=== PATIENT | male | born 1950 | race Caucasian/White ===

== ENCOUNTER 2017-12-31 12:24 | Inpatient (IN) | payer OTHER ==
[2017-12-31 13:12] VITALS: BMI 36.8
--- NOTE | 2017-12-31 13:31 | HP ---
CIWA Score - CIWA Score Nausea/Vomitin-No Nausea/No Vomiting Muscle Tremors: 6 Anxiety: 4-Mod. Anxious/Guarded Agitation: 3 Paroxysmal Sweats: 1-Minimal Palms Moist Orientation: 0-Oriented Tacttile Disturbances: 0-None Auditory Disturbances: 0-None Visual Disturbances: 0-None Headache: 0-None Present CIWA-Ar Total Score: 14 Admission ROS BHS - HPI Chief Complaint: ALCOHOL WITHDRAWAL SX Allergies/Adverse Reactions: Allergies Allergy/AdvReac Type Severity Reaction Status Date / Time No Known Allergies Allergy Verified 12/31/17 13:24 History of Present Illness: 67 Y/O H/MALE WITH A HX OF ALCOHOL DEPENDENCE SEEKING DETOX TX. PT WAS AT [facility] TODAY AND REFERRED TO DETOX. PT STATES HE HAS NEVER BEEN IN TREATMENT FOR DRUG OR ALCOHOL ADDICTION. PT STATES HE WAS EXPOSED TO SCABIES IN THE [place] WHERE HE LIVES AND HE'S BEEN ITCHING/RASH ON SKIN. STATES WAS GIVEN RX LAST WEEK BUT NEVER GOT IT. PT REPORTS RECENT HOMELESSNESS SINCE ONE WEEK OR MORE AND LOOKING TO GET A PLACE TO LIVE. Exam Limitations: No Limitations, Clinical Condition - Ebola screening Have you traveled outside of the country in the last 21 days: No Have you had contact with anyone from an Ebola affected area: No Have you been sick,other than usual withdrawal symptoms: No - Review of Systems Constitutional: Chills, Loss of Appetite, Night Sweats EENT: reports: Dental Problems (NO TEETH), Other (SHANON ON HEAD A MONTH AGO FROM TRIPPING AND FALLING OFF STAIRS AT [facility].) Respiratory: reports: No Symptoms reported Cardiac: reports: Chest Pain (WHEN DRINKING ALCOHOL), Lightheadedness, Chest Tightness GI: reports: Diarrhea : reports: No Symptoms Reported Musculoskeletal: reports: Back Pain Integumentary: reports: Bruising (RASHES ON BOTH EXTREMITIES) Neuro: reports: Dizziness Endocrine: reports: No Symptoms Reported Hematology: reports: No Symptoms Reported Psychiatric: reports: Orientated x3, Anxious Other Systems: Reviewed and Negative Patient History - Patient Medical History Hx Anemia: No Hx Asthma: No Hx Chronic Obstructive Pulmonary Disease (COPD): No Hx Cardiac Disorders: No (BUT CHEST PAIN WHEN DRINKING TOO MUCH) Hx Hypertension: No (ELEVATED TODAY 145/103) Hx Hypercholesterolemia: No Hx Pacemaker: No HX Cerebrovascular Accident: No Hx Seizures: No Hx Diabetes: No Hx Liver Disease: No Hx Genitourinary Disorders: No Hx Sexually Transmitted Disorders: No (DENIES) Hx Renal Disease (ESRD): No Hx Thyroid Disease: No Hx Human Immunodeficiency Virus (HIV): No (NEGATIVE HX) Hx Hepatitis C: No Hx Depression: Yes Hx Suicide Attempt: No (DENIES S/I) - Patient Surgical History Past Surgical History: No Hx Neurologic Surgery: No Hx Cataract Extraction: No Hx Cardiac Surgery: No Hx Lung Surgery: No Hx Breast Surgery: No Hx Breast Biopsy: No Hx Abdominal Surgery: No Hx Appendectomy: No Hx Cholecystectomy: No Hx Genitourinary Surgery: No Hx Orthopedic Surgery: No Hx Hysterectomy: No Anesthesia Reaction: No - PPD History Previous Implant?: Yes (VODKA) Implanted On Prior [facility] Admission?: No PPD to be Administered?: Yes - Reproductive History Patient is a Female of Child Bearing Age (11 -55 yrs old): No (MALE) - Smoking Cessation Smoking history: Former smoker Have you smoked in the past 12 months: No If you are a former smoker, when did you quit?: YEARS AGO Hx Chewing Tobacco Use: No Initiated information on smoking cessation: No - Substance & Tx. History Hx Alcohol Use: Yes Hx Substance Use: No (DENIES) Substance Use Type: Alcohol Hx Substance Use Treatment: No ([facility]) - Substances Abused Alcohol Route: Oral Frequency: Daily Amount used: 1 AND 1/2 PINTS VODKA Age of first use: 14 Date of Last Use: 12/30/17 Family Disease History - Family Disease History Family History: Denies Admission Physical Exam BHS - Vital Signs Vital Signs: Vital Signs - 24 hr 12/31/17 13:04 Temperature 97.1 F L Pulse Rate 87 Respiratory 18 Rate Blood Pressure 145/103 - Physical General Appearance: Yes: Moderate Distress, Irritable, Anxious HEENTM: Yes: EOMI, Normocephalic, Pharynx Normal Respiratory: Yes: Chest Non-Tender, Lungs Clear, Normal Breath Sounds, No Respiratory Distress Neck: Yes: No masses,lesions,Nodules, Supple, Trachea in good position Breast: Yes: Breast Exam Deferred Cardiology: Yes: Regular Rhythm, Regular Rate, S1, S2 Abdominal: Yes: Normal Bowel Sounds, Non Tender, Soft, Protuberent Genitourinary: Yes: Other (N/C) Back: Yes: Within Normal Limits Musculoskeletal: Yes: full range of Motion, Gait Steady Extremities: Yes: Normal Range of Motion, Non-Tender, Tremors, Other (RED RASHES ON LOWER EXTREMITIES) 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 NML intact, Fully Oriented, Alert Integumentary: Yes: Dry, Warm, Rash (RED MACULAR AND POSTULAR RASHES ON HANDS AND LEGS) Lymphatic: Yes: Within Normal Limits - Diagnostic (1) Alcohol dependence with uncomplicated withdrawal Current Visit: Yes Status: Acute (2) Rash Current Visit: Yes Status: Acute (3) Elevated BP without diagnosis of hypertension Current Visit: Yes Status: Acute (4) Scabies exposure Current Visit: Yes Status: Acute (5) Scabies Current Visit: Yes Status: Acute Cleared for Admission [facility] - Detox or Rehab [facility] Level of Care: Medically Managed Detox Regimen/Protocol: Librium [facility] Breath Alcohol Content Breath Alcohol Content: 0 Urine Drug Screen - Results Drug Screen Negative: Yes
[2017-12-31] MEDS ORDERED: MAGNESIUM HYDROX 2400MG/30ML ORAL SUSPENSION 30 ML CUP PO PRN (13:59)
[2017-12-31] MEDS ORDERED: LOPERAMIDE HCL 2 MG CAPSULE PO PRN (13:59)
[2017-12-31] MEDS ORDERED: chlordiazePOXIDE HCL 25 MG CAPSULE PO PRN (13:59)
[2017-12-31] MEDS ORDERED: MAG HYDROX/AL HYDROX/SIMETH 30 ML UNIT-DOSE CUP PO PRN (13:59)
[2017-12-31] MEDS ORDERED: P-EPHED 60MG/TRIPROLIDI 2.5MG TABLET PO PRN (13:59)
[2017-12-31] MEDS ORDERED: ACETAMINOPHEN 325 MG TABLET (FP) PO PRN (13:59)
[2017-12-31] MEDS ORDERED: guaiFENesin/D-METHORPHAN HB 10 ML UNIT-DOSE CUPS PO PRN (13:59)
[2017-12-31] MEDS ORDERED: MAGNESIUM CITRATE 300 ML BOTTLE PO PRN (13:59)
[2017-12-31] MEDS ORDERED: IBUPROFEN 400 MG TABLET (FP) PO PRN (13:59)
[2017-12-31] MEDS ORDERED: MENTHOL/PHENOL 1 EACH UD MM PRN (13:59)
[2017-12-31] MEDS ORDERED: PERMETHRIN 5% TOPICAL CREAM 60 GM TUBE TP ONE (15:10)
[2017-12-31] MEDS ORDERED: chlordiazePOXIDE HCL 25 MG CAPSULE PO ONE (15:15)
[2017-12-31] MEDS ORDERED: cloNIDine HCL 0.1 MG TABLET PO ONE (15:38)
[2017-12-31] MEDS: chlordiazePOXIDE HCL 25 MG CAPSULE PO SCH ×2 (17:16→22:25)
[2017-12-31 18:13] LABS: URINE APPEARANCE TURBID; URINE BILIRUBIN NEGATIVE (<2.0 mg/dL); URINE COLOR YELLOW; URINE GLUCOSE (UA) NEGATIVE (NEGATIVE); URINE KETONE NEGATIVE (NEGATIVE); URINE LEUK ESTERASE NEGATIVE (NEGATIVE); URINE NITRITE NEGATIVE (NEGATIVE)
[2017-12-31 18:20] LABS: URINE PROTEIN 2+ (NEGATIVE)
[2017-12-31 18:29] LABS: URINE MUCUS MODERATE
[2017-12-31] MEDS ORDERED: MELATONIN 5 MG TABLETS PO PRN (22:00)
[2017-12-31] MEDS: THIAMINE HCL 100 MG TABLET (FP) PO SCH (22:24)
[2018-01-01] MEDS: chlordiazePOXIDE HCL 25 MG CAPSULE PO SCH ×4 (05:42→22:14)
--- NOTE | 2018-01-01 09:50 | CONSULT ---
[facility] Psychiatric Consult - Data Date of interview: 01/01/18 Admission source: [facility] Identifying data: Patient is a 67 year old single male, without kids, unemployed , and supported by [facility]. This is patient's first admission to detox at [facility]. Pt. admitted to for alcohol dependence. Substance Abuse History: Smoking Cessation. Smoking history: Former smoker. Have you smoked in the past 12 months: No. If you are a former smoker, when did you quit?: YEARS AGO. Hx Chewing Tobacco Use: No. Initiated information on smoking cessation: No. - Substance & Tx. History. Hx Alcohol Use: Yes. Hx Substance Use: No (DENIES). Substance Use Type: Alcohol. Hx Substance Use Treatment: No ([facility]). - Substances Abused. Alcohol. Route: Oral. Frequency: Daily. Amount used: 1 AND 1/2 PINTS VODKA. Age of first use: 14. Date of Last Use: 12/30/17 Medical History: Denies but presented with elevated Blood pressure in [facility] and reported h/o pain chest only when drinking "alot" Psychiatric History: Patient reports one psychiatric hospitalization at [facility] approximately three years ago after his family called 911 for acting belligerent. Pt. denies OPD and is not prescribed psychotropic medication. States his only interaction with a psychiatrist was when he was admitted to the psychiatric unit at [facility] three years ago. Pt. denies h/o suicide attempt. Physical/Sexual Abuse/Trauma History: Denies. Mental Status Exam - Mental Status Exam Alert and Oriented to: Time, Place, Person Cognitive Function: Good Patient Appearance: Well Groomed Mood: Euthymic Affect: Mood Congruent Patient Behavior: Cooperative Speech Pattern: Garbled Voice Loudness: Moderately Soft/Quiet Thought Process: Goal Oriented Thought Disorder: Not Present Hallucinations: Denies Suicidal Ideation: Denies Homicidal Ideation: Denies Insight/Judgement: Poor Sleep: Fair Appetite: Fair Muscle strength/Tone: Normal Gait/Station: Other (Did not observe patient's gait.) Psychiatric Findings - Problem List ([place] 1, 2,3) (1) Alcohol-induced mood disorder Current Visit: Yes Status: Suspected (2) Alcohol dependence with uncomplicated withdrawal Current Visit: Yes Status: Acute (3) Elevated BP without diagnosis of hypertension Current Visit: Yes Status: Acute (4) Rash Current Visit: Yes Status: Acute (5) Scabies Current Visit: Yes Status: Acute (6) Scabies exposure Current Visit: Yes Status: Acute - Initial Treatment Plan Initial Treatment Plan: Psychoeducation provided. Detoxification in progress. Observation.
[2018-01-01] MEDS: PRENATAL VITAMINS W/ FOLIC ACID TABLET (FP) PO SCH (10:19)
--- NOTE | 2018-01-01 10:47 | EKG ---
Test Reason : Blood Pressure : / mmHG Vent. Rate : 074 BPM Atrial Rate : 074 BPM P-R Int : 138 ms QRS Dur : 088 ms QT Int : 428 ms P-R-T Axes : 053 012 046 degrees QTc Int : 475 ms POOR DATA QUALITY, INTERPRETATION MAY BE ADVERSELY AFFECTED NORMAL SINUS RHYTHM NORMAL ECG NO PREVIOUS ECGS AVAILABLE Confirmed by JEFF DUQUE MD ([id number]) on 01/01/2018 10:47:10 AM Referred By: Confirmed By:JEFF DUQUE MD
[2018-01-01 11:14] LABS: HEMATOCRIT 37.9 % (35.4-49); HEMOGLOBIN 12.1 GM/dL (11.7-16.9); MCH 27.2 pg (25.7-33.7); MCHC 31.9 g/dl (32.0-35.9); MEAN CELL VOLUME 85.3 fl (80-96); MEAN PLT VOLUME 7.8 fl (7.5-11.1); PLATELET COUNT 336 K/MM3 (134-434); RBC 4.45 M/mm3 (4.00-5.60); RDW 21.5 % (11.9-15.9)
--- NOTE | 2018-01-01 11:21 | PN ---
[facility] CIWA - CIWA Score Nausea/Vomitin-No Nausea/No Vomiting Muscle Tremors: 4-Moderate,w/Arms Extend Anxiety: 4-Mod. Anxious/Guarded Agitation: 4-Moderately Restless Paroxysmal Sweats: 1-Minimal Palms Moist Orientation: 0-Oriented Tacttile Disturbances: 0-None Auditory Disturbances: 0-None Visual Disturbances: 0-None Headache: 0-None Present CIWA-Ar Total Score: 13 S Progress Note (SOAP) Subjective: ANXIETY,TREMORS,IRRITABILIT, Objective: 01/01/18 11:21 Vital Signs 01/01/18 01/01/18 01/01/18 03:30 06:27 09:13 Temperature 97.5 F L 96.9 F L Pulse Rate 74 87 Respiratory 18 18 18 Rate Blood Pressure 142/92 140/88 Laboratory Tests 12/31/17 01/01/18 Unknown 06:00 WBC 6.0 RBC 4.45 Hgb 12.1 Hct 37.9 MCV 85.3 MCH 27.2 MCHC 31.9 L RDW 21.5 H Plt Count 336 MPV 7.8 Urine Color Yellow Urine Appearance Turbid Urine pH 5.0 Ur Specific [place] 1.029 Urine Protein 2+ H Urine Glucose (UA) Negative Urine Ketones Negative Urine Blood Negative Urine Nitrite Negative Urine Bilirubin Negative Urine Urobilinogen 2.0 Ur Leukocyte Esterase Negative Urine WBC (Auto) None Urine RBC (Auto) None Urine Mucus Moderate OTHER LABS PENDING Assessment: 01/01/18 11:22 WITHDRAWAL SX Plan: CONTINUE DETOX
[2018-01-01 12:09] LABS: ALBUMIN 4.3 g/dl (3.4-5.0); ALK PHOS 71 U/L (45-117); ANION GAP 9 (8-16); BLOOD UREA NITROGEN 19 mg/dL (7-18); CALCIUM 8.5 mg/dL (8.5-10.1); CHLORIDE 100 mmol/L (98-107); CO2 29 mmol/L (21-32); GLUCOSE,RANDOM 119 mg/dL (74-106); POTASSIUM 3.1 mmol/L (3.5-5.1); SGOT/AST 99 U/L (15-37); SGPT/ALT 42 U/L (12-78); SODIUM 138 mmol/L (136-145); TOT PROT 9.2 g/dl (6.4-8.2)
[2018-01-01 13:04] LABS: SICKLE CELL SCREEN NEGATIVE (NEGATIVE)
[2018-01-01] MEDS: THIAMINE HCL 100 MG TABLET (FP) PO SCH (22:14)
[2018-01-02] MEDS: chlordiazePOXIDE HCL 25 MG CAPSULE PO SCH ×2 (05:43→10:23)
[2018-01-02] MEDS: PRENATAL VITAMINS W/ FOLIC ACID TABLET (FP) PO SCH (10:22)
--- NOTE | 2018-01-02 10:43 | PN ---
S CIWA - CIWA Score Nausea/Vomitin-No Nausea/No Vomiting Muscle Tremors: 4-Moderate,w/Arms Extend Anxiety: 4-Mod. Anxious/Guarded Agitation: 4-Moderately Restless Paroxysmal Sweats: 1-Minimal Palms Moist Orientation: 0-Oriented Tacttile Disturbances: 0-None Auditory Disturbances: 0-None Visual Disturbances: 0-None Headache: 0-None Present CIWA-Ar Total Score: 13 BHS Progress Note (SOAP) Subjective: ANXIETY,SWEATS,TREMORS RESOLVING. Objective: 01/02/18 10:43 Vital Signs 01/02/18 01/02/18 01/02/18 03:30 06:23 06:30 Temperature 98.4 F Pulse Rate 78 Respiratory 18 18 18 Rate Blood Pressure 138/87 01/02/18 09:24 Temperature 97.4 F L Pulse Rate 72 Respiratory 18 Rate Blood Pressure 134/70 Laboratory Tests 12/31/17 01/01/18 01/01/18 Unknown 06:00 06:00 WBC 6.0 RBC 4.45 Hgb 12.1 Hct 37.9 MCV 85.3 MCH 27.2 MCHC 31.9 L RDW 21.5 H Plt Count 336 MPV 7.8 Sickle Cell Screen Negative Sodium 138 Potassium 3.1 L Chloride 100 Carbon Dioxide 29 Anion Gap 9 BUN 19 H Creatinine 1.0 Creat Clearance w eGFR > 60 Random Glucose 119 H Calcium 8.5 Total Bilirubin 1.0 AST 99 H ALT 42 Alkaline Phosphatase 71 Total Protein 9.2 H Albumin 4.3 Urine Color Yellow Urine Appearance Turbid Urine pH 5.0 Ur Specific [place] 1.029 Urine Protein 2+ H Urine Glucose (UA) Negative Urine Ketones Negative Urine Blood Negative Urine Nitrite Negative Urine Bilirubin Negative Urine Urobilinogen 2.0 Ur Leukocyte Esterase Negative Urine WBC (Auto) None Urine RBC (Auto) None Urine Mucus Moderate RPR Titer 01/01/18 06:00 WBC RBC Hgb Hct MCV MCH MCHC RDW Plt Count MPV Sickle Cell Screen Sodium Potassium Chloride Carbon Dioxide Anion Gap BUN Creatinine Creat Clearance w eGFR Random Glucose Calcium Total Bilirubin AST ALT Alkaline Phosphatase Total Protein Albumin Urine Color Urine Appearance Urine pH Ur Specific [place] Urine Protein Urine Glucose (UA) Urine Ketones Urine Blood Urine Nitrite Urine Bilirubin Urine Urobilinogen Ur Leukocyte Esterase Urine WBC (Auto) Urine RBC (Auto) Urine Mucus RPR Titer Nonreactive K+ = 3.1 Assessment: 01/02/18 10:43 WITHDRAWAL SX HYPOKALEMIA Plan: CONTINUE DETOX KCL LIQ 20 MEQ PO BID REPEAT CMP ON 01/03/18
[2018-01-02] MEDS ORDERED: POTASSIUM CHLORIDE ORAL LIQUID 20 MEQ/15 ML PO ONE (10:44)
[2018-01-02] MEDS ORDERED: chlordiazePOXIDE 5 MG CAPSULE PO SCH (17:00)
[2018-01-02] MEDS: chlordiazePOXIDE 5 MG CAPSULE PO SCH ×2 (17:27→22:17)
[2018-01-02] MEDS ORDERED: POTASSIUM CHLORIDE ORAL LIQUID 20 MEQ/15 ML PO SCH (22:00)
[2018-01-02] MEDS: THIAMINE HCL 100 MG TABLET (FP) PO SCH (22:17)
[2018-01-03] MEDS ORDERED: chlordiazePOXIDE HCL 10 MG CAPSULE PO SCH ×3 (05:00→17:00)
[2018-01-03 09:26] VITALS: BP 158/91; PULSE 73; TEMP 97
[2018-01-03 11:00] LABS: ALK PHOS 52 U/L (45-117); ANION GAP 7 (8-16); BILIRUBIN,TOTAL 0.4 mg/dL (0.2-1.0); BLOOD UREA NITROGEN 15 mg/dL (7-18); CALCIUM 8.1 mg/dL (8.5-10.1); CHLORIDE 105 mmol/L (98-107); CO2 29 mmol/L (21-32); CREATININE 0.8 mg/dL (0.7-1.3); GLUCOSE,RANDOM 84 mg/dL (74-106); POTASSIUM 4.2 mmol/L (3.5-5.1); SGOT/AST 80 U/L (15-37); SGPT/ALT 37 U/L (12-78); SODIUM 141 mmol/L (136-145); TOT PROT 6.6 g/dl (6.4-8.2)
--- NOTE | 2018-01-03 18:03 | PN ---
BHS Progress Note (SOAP) Subjective: Patient denies current Detox symptoms and reports that he feels well overall. Objective: PATIENT A & O X 3, OBSERVED AMBULATING ON UNIT. NO ACUTE DISTRESS. 01/03/18 18:02 Vital Signs Temperature 97.0 F L 01/03/18 09:25 Pulse Rate 73 01/03/18 09:25 Respiratory Rate 18 01/03/18 09:25 Blood Pressure 158/91 01/03/18 09:25 O2 Sat by Pulse Oximetry (%) Laboratory Tests 12/31/17 01/01/18 01/01/18 Unknown 06:00 06:00 WBC 6.0 RBC 4.45 Hgb 12.1 Hct 37.9 MCV 85.3 MCH 27.2 MCHC 31.9 L RDW 21.5 H Plt Count 336 MPV 7.8 Sickle Cell Screen Negative Sodium 138 Potassium 3.1 L Chloride 100 Carbon Dioxide 29 Anion Gap 9 BUN 19 H Creatinine 1.0 Creat Clearance w eGFR > 60 Random Glucose 119 H Calcium 8.5 Total Bilirubin 1.0 AST 99 H ALT 42 Alkaline Phosphatase 71 Total Protein 9.2 H Albumin 4.3 Urine Color Yellow Urine Appearance Turbid Urine pH 5.0 Ur Specific [place] 1.029 Urine Protein 2+ H Urine Glucose (UA) Negative Urine Ketones Negative Urine Blood Negative Urine Nitrite Negative Urine Bilirubin Negative Urine Urobilinogen 2.0 Ur Leukocyte Esterase Negative Urine WBC (Auto) None Urine RBC (Auto) None Urine Mucus Moderate RPR Titer 01/01/18 01/03/18 06:00 07:23 WBC RBC Hgb Hct MCV MCH MCHC RDW Plt Count MPV Sickle Cell Screen Sodium 141 Potassium 4.2 D Chloride 105 Carbon Dioxide 29 Anion Gap 7 L BUN 15 D Creatinine 0.8 Creat Clearance w eGFR > 60 Random Glucose 84 D Calcium 8.1 L Total Bilirubin 0.4 D AST 80 H ALT 37 Alkaline Phosphatase 52 D Total Protein 6.6 D Albumin 3.0 L D Urine Color Urine Appearance Urine pH Ur Specific [place] Urine Protein Urine Glucose (UA) Urine Ketones Urine Blood Urine Nitrite Urine Bilirubin Urine Urobilinogen Ur Leukocyte Esterase Urine WBC (Auto) Urine RBC (Auto) Urine Mucus RPR Titer Nonreactive LABS NOTED. Assessment: 01/03/18 18:03 COMPLETION OF DETOX REGIMEN. Plan: PATIENT SCHEDULED FOR DISCHARGE FROM DETOX UNIT TODAY.
--- NOTE | 2018-01-03 18:08 | DS ---
[facility] Detox Discharge Summary Admission Date: 12/31/17 Discharge Date: 01/03/18 - History Present History: Alcohol Dependence Additional Comments: PATIENT GOING TO [facility] ([place], [place] PATIENT ADVISED TO CONSIDER LOCAL 12-STEP/AA OUTPATIENT PROGRAMS FOR AFTERCARE. PATIENT WAS DISCHARGED FROM DETOX UNIT IN STABLE MEDICAL CONDITION. Pertinent Past History: Depression, History of elevated BP, History of Scabies (Exposure), Hypokalemia. - Physical Exam Results Vital Signs: Vital Signs Temperature 97.0 F L 01/03/18 09:25 Pulse Rate 73 01/03/18 09:25 Respiratory Rate 18 01/03/18 09:25 Blood Pressure 158/91 01/03/18 09:25 O2 Sat by Pulse Oximetry (%) Pertinent Admission Physical Exam Findings: WITHDRAWAL SYMPTOMS. Laboratory Tests 12/31/17 01/01/18 01/01/18 Unknown 06:00 06:00 WBC 6.0 RBC 4.45 Hgb 12.1 Hct 37.9 MCV 85.3 MCH 27.2 MCHC 31.9 L RDW 21.5 H Plt Count 336 MPV 7.8 Sickle Cell Screen Negative Sodium 138 Potassium 3.1 L Chloride 100 Carbon Dioxide 29 Anion Gap 9 BUN 19 H Creatinine 1.0 Creat Clearance w eGFR > 60 Random Glucose 119 H Calcium 8.5 Total Bilirubin 1.0 AST 99 H ALT 42 Alkaline Phosphatase 71 Total Protein 9.2 H Albumin 4.3 Urine Color Yellow Urine Appearance Turbid Urine pH 5.0 Ur Specific [place] 1.029 Urine Protein 2+ H Urine Glucose (UA) Negative Urine Ketones Negative Urine Blood Negative Urine Nitrite Negative Urine Bilirubin Negative Urine Urobilinogen 2.0 Ur Leukocyte Esterase Negative Urine WBC (Auto) None Urine RBC (Auto) None Urine Mucus Moderate RPR Titer 01/01/18 01/03/18 06:00 07:23 WBC RBC Hgb Hct MCV MCH MCHC RDW Plt Count MPV Sickle Cell Screen Sodium 141 Potassium 4.2 D Chloride 105 Carbon Dioxide 29 Anion Gap 7 L BUN 15 D Creatinine 0.8 Creat Clearance w eGFR > 60 Random Glucose 84 D Calcium 8.1 L Total Bilirubin 0.4 D AST 80 H ALT 37 Alkaline Phosphatase 52 D Total Protein 6.6 D Albumin 3.0 L D Urine Color Urine Appearance Urine pH Ur Specific [place] Urine Protein Urine Glucose (UA) Urine Ketones Urine Blood Urine Nitrite Urine Bilirubin Urine Urobilinogen Ur Leukocyte Esterase Urine WBC (Auto) Urine RBC (Auto) Urine Mucus RPR Titer Nonreactive LABS NOTED. - Treatment Hospital Course: Detox Protocol Followed, Detoxed Safely, Responded well, Discharged Condition Good Patient has Accepted a Rehab Referral to: PT. GOING TO [facility], ADVISED TO COBSIDER LOCAL 12-STEP/AA. - Medication Discharge Medications: Ambulatory Orders NK [No Known Home Medication] 12/31/17 - Diagnosis (1) Alcohol dependence with uncomplicated withdrawal Status: Acute (2) Elevated BP without diagnosis of hypertension Status: Acute (3) Hypokalemia Status: Acute (4) Rash Status: Acute (5) Scabies Status: Acute (6) Scabies exposure Status: Acute (7) Alcohol-induced mood disorder Status: Suspected - AMA Did Patient Leave Against Medical Advice: No
== END 2018-01-03 09:38 | disposition home or self-care (01) | DRG 897 ==
LOC: YASAS 12:24 → Y3N 14:31
PROVIDERS: ADMIT Family Medicine Addiction Medicine; ATTEND Family Medicine Addiction Medicine
PROC: HZ2ZZZZ Detoxification Services for Substance Abuse Treatment (ICD-10-PCS; principal; 2017-12-31)
DX: F10.230 Alcohol dependence with withdrawal, uncomplicated (principal); F10.24 Alcohol dependence with alcohol-induced mood disorder; E87.6 Hypokalemia; R03.0 Elevated blood-pressure reading, without diagnosis of hypertension; R21 Rash and other nonspecific skin eruption; Z20.89 Contact with and (suspected) exposure to other communicable diseases; B86 Scabies; Z59.0 Homelessness
CPT/HCPCS: 36415; 80053; 81003; 81015; 85027; 85660; 86593; 93005; 93010; J0735

== ENCOUNTER 2020-06-14 09:12 | Inpatient (IN) | payer OTHER ==
[2020-06-14] MEDS ORDERED: PERMETHRIN 5% TOPICAL CREAM 60 GM TUBE ONE (09:53)
[2020-06-14] MEDS ORDERED: BISMUTH SUBSALICYLATE 524 MG/30 ML PO PRN (10:04)
[2020-06-14] MEDS ORDERED: METHOCARBAMOL 500 MG TABLET PO PRN (10:04)
[2020-06-14] MEDS ORDERED: MENTHOL/PHENOL 1 EACH UD MM PRN (10:04)
[2020-06-14] MEDS ORDERED: MAG HYDROX/AL HYDROX/SIMETH 30 ML UNIT-DOSE CUP PO PRN (10:04)
[2020-06-14] MEDS ORDERED: MAGNESIUM HYDROX 2400MG/30ML ORAL SUSPENSION 30 ML CUP PO PRN (10:04)
[2020-06-14] MEDS ORDERED: chlordiazePOXIDE HCL 25 MG CAPSULE PO PRN (10:04)
[2020-06-14] MEDS ORDERED: ACETAMINOPHEN 325 MG TABLET (FP) PO PRN ×2 (10:04)
[2020-06-14] MEDS ORDERED: MAGNESIUM CITRATE 300 ML BOTTLE PO PRN (10:04)
[2020-06-14] MEDS ORDERED: ONDANSETRON *ODT* 4 MG TABLET SL PRN (10:04)
[2020-06-14] MEDS ORDERED: IBUPROFEN 400 MG TABLET (FP) PO PRN (10:04)
[2020-06-14] MEDS ORDERED: NICOTINE POLACRILEX 2 MG GUM BUC PRN (10:04)
[2020-06-14 10:07] VITALS: BMI 35.3
[2020-06-14] MEDS ORDERED: PERMETHRIN 5% TOPICAL CREAM 60 GM TUBE TP ONE (11:00)
[2020-06-14] MEDS ORDERED: hydrOXYzine PAMOATE 25 MG CAPSULE (FP) PO SCH (14:00)
[2020-06-14 14:42] LABS: HEMATOCRIT 35.3 % (35.4-49); HEMOGLOBIN 11.6 GM/dL (11.7-16.9); MCH 31.7 pg (25.7-33.7); MEAN CELL VOLUME 96.1 fl (80-96); MEAN PLT VOLUME 7.6 fl (7.5-11.1); PLATELET COUNT 260 K/MM3 (134-434); RBC 3.67 M/mm3 (4.00-5.60); RDW 15.6 % (11.9-15.9)
[2020-06-14 14:50] LABS: ALBUMIN 3.7 g/dl (3.4-5.0); CALCIUM 8.6 mg/dL (8.5-10.1)
[2020-06-14 14:51] LABS: BLOOD UREA NITROGEN 26.7 mg/dL (7-18)
[2020-06-14 14:54] LABS: CREATININE 1.4 mg/dL (0.55-1.3)
[2020-06-14 14:55] LABS: BILIRUBIN,TOTAL 0.6 mg/dL (0.2-1); TOT PROT 7.8 g/dl (6.4-8.2)
[2020-06-14 15:42] LABS: HIV INTERPRETATION NEGATIVE (NEGATIVE)
[2020-06-14] MEDS ORDERED: chlordiazePOXIDE HCL 25 MG CAPSULE PO SCH (17:00)
[2020-06-14] MEDS: chlordiazePOXIDE HCL 25 MG CAPSULE PO SCH ×2 (17:47→22:30)
[2020-06-14] MEDS: THIAMINE HCL 100 MG TABLET (FP) PO SCH (22:29)
[2020-06-14] MEDS: MELATONIN 5 MG TABLETS PO SCH (22:30)
[2020-06-15] MEDS: chlordiazePOXIDE HCL 25 MG CAPSULE PO SCH ×4 (06:33→22:22)
[2020-06-15] MEDS: hydrOXYzine PAMOATE 25 MG CAPSULE (FP) PO PRN (06:34)
[2020-06-15] MEDS: PRENATAL VITAMINS W/ FOLIC ACID TABLET (FP) PO SCH (10:38)
[2020-06-15] MEDS: NICOTINE 7 MG/24 HOURS TOPICAL PATCH TD SCH (10:39)
[2020-06-15] MEDS: THIAMINE HCL 100 MG TABLET (FP) PO SCH (22:22)
[2020-06-15] MEDS: MELATONIN 5 MG TABLETS PO SCH (22:22)
[2020-06-16] MEDS: chlordiazePOXIDE HCL 25 MG CAPSULE PO SCH ×4 (05:24→22:07)
[2020-06-16] MEDS: hydrOXYzine PAMOATE 25 MG CAPSULE (FP) PO PRN (05:24)
[2020-06-16] MEDS: PRENATAL VITAMINS W/ FOLIC ACID TABLET (FP) PO SCH (10:14)
[2020-06-16] MEDS: NICOTINE 7 MG/24 HOURS TOPICAL PATCH TD SCH (10:15)
[2020-06-16 19:26] LABS: CALCIUM 8.1 mg/dL (8.5-10.1)
[2020-06-16 19:27] LABS: BLOOD UREA NITROGEN 34.1 mg/dL (7-18)
[2020-06-16 19:30] LABS: CREATININE 2.3 mg/dL (0.55-1.3)
[2020-06-16] MEDS ORDERED: METOPROLOL TARTRATE 50 MG TABLET (FP) PO ONE (20:40)
[2020-06-16] MEDS: MELATONIN 5 MG TABLETS PO SCH (22:07)
[2020-06-16] MEDS: THIAMINE HCL 100 MG TABLET (FP) PO SCH (22:07)
[2020-06-17] MEDS ORDERED: chlordiazePOXIDE HCL 10 MG CAPSULE PO PRN
[2020-06-17] MEDS: chlordiazePOXIDE HCL 10 MG CAPSULE PO SCH ×4 (05:22→23:56)
[2020-06-17] MEDS: PRENATAL VITAMINS W/ FOLIC ACID TABLET (FP) PO SCH (10:19)
[2020-06-17] MEDS: NICOTINE 7 MG/24 HOURS TOPICAL PATCH TD SCH (10:19)
[2020-06-17 17:39] VITALS: BP 180/69; PULSE 73; TEMP 97.5
[2020-06-17] MEDS: MELATONIN 5 MG TABLETS PO SCH (23:55)
[2020-06-17] MEDS: THIAMINE HCL 100 MG TABLET (FP) PO SCH (23:55)
[2020-06-18] MEDS ORDERED: chlordiazePOXIDE HCL 10 MG CAPSULE PO SCH (05:00)
[2020-06-19] MEDS ORDERED: chlordiazePOXIDE HCL 10 MG CAPSULE PO ONE (05:00)
== END 2020-06-17 23:55 | disposition short-term general hospital (02) | DRG 897 ==
LOC: YASAS 09:12 → Y3N 10:53
PROVIDERS: ADMIT Allergy & Immunology; ATTEND Allergy & Immunology
PROC: HZ2ZZZZ Detoxification Services for Substance Abuse Treatment (ICD-10-PCS; principal; 2020-06-14)
DX: F10.230 Alcohol dependence with withdrawal, uncomplicated (principal); N17.9 Acute kidney failure, unspecified; F17.210 Nicotine dependence, cigarettes, uncomplicated; F17.290 Nicotine dependence, other tobacco product, uncomplicated; I10 Essential (primary) hypertension; N28.9 Disorder of kidney and ureter, unspecified; B86 Scabies; N49.2 Inflammatory disorders of scrotum; Z87.891 Personal history of nicotine dependence; Z59.0 Homelessness
CPT/HCPCS: 36415; 80048; 80053; 85027; 86780; 87389; 93005; 93010; C9803; U0003

== ENCOUNTER 2020-06-17 20:41 | Inpatient (IN) | payer OTHER ==
[2020-06-17] MEDS ORDERED: SODIUM CHLORIDE 0.9% 500 ML INFUS.BAG IV ONE (21:28)
[2020-06-17 22:52] LABS: HEMATOCRIT 38.6 % (35.4-49); HEMOGLOBIN 12.6 GM/dL (11.7-16.9); MCH 31.8 pg (25.7-33.7); MCHC 32.7 g/dl (32.0-35.9); MEAN CELL VOLUME 97.4 fl (80-96); MEAN PLT VOLUME 7.4 fl (7.5-11.1); PLATELET COUNT 239 K/MM3 (134-434); RBC 3.96 M/mm3 (4.00-5.60); RDW 16.1 % (11.9-15.9); WHITE BLOOD COUNT 7.7 K/mm3 (4.0-10.0)
[2020-06-17 23:18] LABS: POTASSIUM 4.6 mmol/L (3.5-5.1)
[2020-06-17 23:20] LABS: ALBUMIN 3.2 g/dl (3.4-5.0); BLOOD UREA NITROGEN 38.3 mg/dL (7-18); CALCIUM 8.7 mg/dL (8.5-10.1)
[2020-06-17 23:25] LABS: BILIRUBIN,TOTAL 0.7 mg/dL (0.2-1); TOT PROT 7.4 g/dl (6.4-8.2)
[2020-06-18 01:16] LABS: EPI CELLS 13 /uL (0-25.1); HYALINE CASTS 0 /uL (0-3.1); PH,URINE 7.5 (5.0-8.0); URINE APPEARANCE CLEAR; URINE BACTERIA 21 /uL (0-1359); URINE BILIRUBIN NEGATIVE (NEGATIVE); URINE COLOR YELLOW; URINE GLUCOSE (UA) NEGATIVE (NEGATIVE); URINE KETONE NEGATIVE (NEGATIVE); URINE LEUK ESTERASE 2+ (NEGATIVE); URINE NITRITE NEGATIVE (NEGATIVE); URINE PROTEIN NEGATIVE (NEGATIVE); URINE RBC 20 /uL (0-23.9); URINE UROBILINOGEN 0.2 mg/dL (0.2-1.0); URINE WBC 98 /uL (0-25.8)
[2020-06-18] MEDS ORDERED: ATENOLOL 25 MG TABLET (FP) ONE (06:07)
[2020-06-18] MEDS: ATENOLOL 50 MG TABLET (FP) PO SCH ×2 (06:13→09:41)
[2020-06-18 07:38] LABS: INR 1.06 (0.83-1.09); PROTHROMBIN TIME (PATIENT) 12.8 SEC (9.7-13.0)
[2020-06-18 07:41] LABS: ACTIVATED PTT 31.8 SECONDS (25.2-36.5)
[2020-06-18 08:10] LABS: BASO % 0.5 % (0-2.0); EOS % 3.8 % (0-4.5); HEMATOCRIT 36.6 % (35.4-49); HEMOGLOBIN 12.2 GM/dL (11.7-16.9); LYMPH % 9.5 % (8-40); MCH 32.6 pg (25.7-33.7); MCHC 33.4 g/dl (32.0-35.9); MEAN CELL VOLUME 97.7 fl (80-96); MEAN PLT VOLUME 7.6 fl (7.5-11.1); MONO % 12.9 % (3.8-10.2); NEUT % 73.3 % (42.8-82.8); PLATELET COUNT 224 K/MM3 (134-434); RBC 3.75 M/mm3 (4.00-5.60); RDW 15.9 % (11.9-15.9); WHITE BLOOD COUNT 6.2 K/mm3 (4.0-10.0)
[2020-06-18] MEDS ORDERED: SODIUM CHLORIDE 1,000 ML IV SCH (08:15)
[2020-06-18 08:23] LABS: CHLORIDE 122 mmol/L (98-107); POTASSIUM 4.5 mmol/L (3.5-5.1); SODIUM 159 mmol/L (136-145)
[2020-06-18 08:26] LABS: ANION GAP 10 MMOL/L (8-16); CALCIUM 8.3 mg/dL (8.5-10.1); CO2 26 mmol/L (21-32); GLUCOSE,RANDOM 81 mg/dL (74-106); MAGNESIUM 2.1 mg/dL (1.8-2.4)
[2020-06-18 08:29] LABS: CREATININE 3.3 mg/dL (0.55-1.3); PHOSPHOROUS 3.3 mg/dL (2.5-4.9); SGOT/AST 13 U/L (15-37); SGPT/ALT 10 U/L (13-61)
[2020-06-18 08:31] LABS: BILIRUBIN,TOTAL 0.7 mg/dL (0.2-1); TOT PROT 6.8 g/dl (6.4-8.2)
[2020-06-18 08:32] LABS: ALK PHOS 83 U/L (45-117)
[2020-06-18] MEDS ORDERED: THIAMINE HCL 100 MG TABLET (FP) ONE (08:49)
[2020-06-18] MEDS ORDERED: FOLIC ACID 1 MG TABLET (FP) ONE (08:49)
[2020-06-18] MEDS: PRAZOSIN HCL 2 MG CAPSULE PO SCH ×2 (09:41→23:01)
[2020-06-18] MEDS: THIAMINE HCL 100 MG TABLET (FP) PO SCH (09:41)
[2020-06-18] MEDS: FOLIC ACID 1 MG TABLET (FP) PO SCH (09:41)
[2020-06-18] MEDS: SODIUM CHLORIDE 0.45% 1,000 ML IV SCH (15:23)
[2020-06-18] MEDS ORDERED: TAMSULOSIN HCL 0.4 MG CAP PO ONE (15:44)
[2020-06-18 18:17] VITALS: BMI 29.0
[2020-06-18 19:58] LABS: POTASSIUM 4.2 mmol/L (3.5-5.1)
[2020-06-18 20:02] LABS: ALBUMIN 3.2 g/dl (3.4-5.0); BLOOD UREA NITROGEN 42.6 mg/dL (7-18); CALCIUM 8.6 mg/dL (8.5-10.1)
[2020-06-18 20:05] LABS: CREATININE 3.3 mg/dL (0.55-1.3)
[2020-06-18 20:07] LABS: BILIRUBIN,TOTAL 0.6 mg/dL (0.2-1); TOT PROT 7.4 g/dl (6.4-8.2)
[2020-06-18] MEDS ORDERED: PT OWN MED DRAWER 7, Y5N ONE (22:28)
[2020-06-18] MEDS: chlordiazePOXIDE HCL 10 MG CAPSULE PO SCH (22:30)
[2020-06-18] MEDS ORDERED: ZOLPIDEM TARTRATE 5 MG TABLET PO ONE (22:45)
[2020-06-18] MEDS: PRAZOSIN HCL 1 MG CAPSULE PO SCH (22:54)
[2020-06-19 08:14] LABS: BASO % 0.5 % (0-2.0); EOS % 5.6 % (0-4.5); HEMATOCRIT 34.9 % (35.4-49); HEMOGLOBIN 11.4 GM/dL (11.7-16.9); LYMPH % 11.5 % (8-40); MCH 31.7 pg (25.7-33.7); MCHC 32.6 g/dl (32.0-35.9); MEAN CELL VOLUME 97.2 fl (80-96); MEAN PLT VOLUME 7.3 fl (7.5-11.1); NEUT % 69.4 % (42.8-82.8); PLATELET COUNT 236 K/MM3 (134-434); RBC 3.59 M/mm3 (4.00-5.60); RDW 15.5 % (11.9-15.9); WHITE BLOOD COUNT 5.5 K/mm3 (4.0-10.0)
[2020-06-19 08:35] LABS: POTASSIUM 3.9 mmol/L (3.5-5.1)
[2020-06-19 08:44] LABS: ALBUMIN 2.8 g/dl (3.4-5.0); BLOOD UREA NITROGEN 39.5 mg/dL (7-18); CALCIUM 8.3 mg/dL (8.5-10.1)
[2020-06-19 08:48] LABS: CREATININE 2.9 mg/dL (0.55-1.3)
[2020-06-19 08:49] LABS: TOT PROT 6.2 g/dl (6.4-8.2)
[2020-06-19] MEDS ORDERED: PT OWN MED DRAWER 7, Y5N ONE (09:24)
[2020-06-19] MEDS: THIAMINE HCL 100 MG TABLET (FP) PO SCH (09:26)
[2020-06-19] MEDS: TAMSULOSIN HCL 0.4 MG CAP PO SCH (09:26)
[2020-06-19] MEDS: chlordiazePOXIDE HCL 10 MG CAPSULE PO SCH (09:26)
[2020-06-19] MEDS: ATENOLOL 50 MG TABLET (FP) PO SCH (09:26)
[2020-06-19] MEDS: FOLIC ACID 1 MG TABLET (FP) PO SCH (09:26)
[2020-06-19] MEDS: PRAZOSIN HCL 1 MG CAPSULE PO SCH ×2 (09:27→21:21)
[2020-06-19] MEDS: LORazepam 1 MG TABLET PO PRN (10:45)
[2020-06-19] MEDS: SODIUM CHLORIDE 0.45% 1,000 ML IV SCH (16:22)
[2020-06-20 08:01] LABS: BASO % 0.7 % (0-2.0); EOS % 5.2 % (0-4.5); HEMATOCRIT 34.6 % (35.4-49); HEMOGLOBIN 11.4 GM/dL (11.7-16.9); LYMPH % 15.7 % (8-40); MCH 32.2 pg (25.7-33.7); MCHC 33.1 g/dl (32.0-35.9); MEAN CELL VOLUME 97.4 fl (80-96); MEAN PLT VOLUME 7.4 fl (7.5-11.1); MONO % 14.6 % (3.8-10.2); NEUT % 63.8 % (42.8-82.8); PLATELET COUNT 270 K/MM3 (134-434); RBC 3.55 M/mm3 (4.00-5.60); RDW 15.4 % (11.9-15.9); WHITE BLOOD COUNT 5.4 K/mm3 (4.0-10.0)
[2020-06-20] MEDS: TAMSULOSIN HCL 0.4 MG CAP PO SCH (08:23)
[2020-06-20] MEDS: LORazepam 1 MG TABLET PO PRN (08:23)
[2020-06-20 08:26] LABS: POTASSIUM 3.9 mmol/L (3.5-5.1)
[2020-06-20 08:33] LABS: ALBUMIN 2.8 g/dl (3.4-5.0); CALCIUM 8.1 mg/dL (8.5-10.1)
[2020-06-20 08:34] LABS: BLOOD UREA NITROGEN 35.3 mg/dL (7-18); MAGNESIUM 1.8 mg/dL (1.8-2.4)
[2020-06-20 08:36] LABS: CREATININE 2.4 mg/dL (0.55-1.3)
[2020-06-20 08:37] LABS: BILIRUBIN,TOTAL 0.6 mg/dL (0.2-1); TOT PROT 6.5 g/dl (6.4-8.2)
[2020-06-20] MEDS: ATENOLOL 50 MG TABLET (FP) PO SCH (09:54)
[2020-06-20] MEDS: FOLIC ACID 1 MG TABLET (FP) PO SCH (09:55)
[2020-06-20] MEDS: THIAMINE HCL 100 MG TABLET (FP) PO SCH (09:55)
[2020-06-20] MEDS: PRAZOSIN HCL 1 MG CAPSULE PO SCH (09:55)
[2020-06-20 14:39] VITALS: BP 138/78; PULSE 66; TEMP 98.7
== END 2020-06-20 19:47 | disposition home or self-care (01) | DRG 683 ==
LOC: JER 20:41 → JERBED 23:58 → J8W 06-18 17:57
PROVIDERS: ADMIT Internal Medicine; ATTEND Nurse Practitioner Acute Care
DX: N17.9 Acute kidney failure, unspecified (principal); E87.0 Hyperosmolality and hypernatremia; I16.0 Hypertensive urgency; N13.30 Unspecified hydronephrosis; F32.9 Major depressive disorder, single episode, unspecified; F10.10 Alcohol abuse, uncomplicated; N40.0 Benign prostatic hyperplasia without lower urinary tract symptoms; N50.89 Other specified disorders of the male genital organs
CPT/HCPCS: 36415; 76775-TC; 76856-TC; 80053; 81003; 82550; 82565; 82962; 83735; 83935; 84100; 84153; 84156; 84300; 84484; 85025; 85027; 85610; 85730; 93005; 93010; 99285-25; C9803; U0003